=== PATIENT | male | born 1950 | race Caucasian/White ===

== ENCOUNTER → 2021-04-23 | Outpatient (CLI) | payer MEDICARE ==
[~2021-04-23] MED LIST: HYDACE5 PO; Norco 5-325 Ta1 EACH PO
== END | disposition home or self-care (01) ==
LOC: LAB SHORT 11:15
DX: L82.1 Other seborrheic keratosis (principal); L81.4 Other melanin hyperpigmentation; L81.9 Disorder of pigmentation, unspecified; L85.9 Epidermal thickening, unspecified
CPT/HCPCS: 88305